=== PATIENT | female | born 1965 | race African-American/Black ===

== ENCOUNTER 2016-07-29 19:08 | Emergency (ER) | payer OTHER ==
--- NOTE | 2016-07-29 19:11 | PDOC ---
Rapid Medical Evaluation Time Seen by Provider: 07/29/16 19:11 Medical Evaluation: Allergies Allergy/AdvReac Type Severity Reaction Status Date / Time No Known Drug Allergies Allergy Verified 07/22/15 19:18 wheat Allergy Hives Verified 07/22/15 19:18 NUTS Allergy Hives Uncoded 07/22/15 19:18 07/29/16 19:11 50 year old female with history of asthma, latent TB s/p tx in 1995, and wheat/ nut allergies presents with painful swallowing and sensation of swelling to the right side of the throat and face after eating popcorn. No shortness of breath. V/s unremarkable. No wheezing or oropharyngeal edema noted. No drooling or stridor. -To FT for further evaluation.
[2016-07-29 19:17] VITALS: BP 159/87; PULSE 79; TEMP 97.9; BMI 39.1
[2016-07-29] MEDS ORDERED: DEXAMETHASONE SOD PHOSPHATE 10 MG/1 ML VIAL IM ONE (19:23)
--- NOTE | 2016-07-29 19:39 | PDOC ---
History of Present Illness - General Chief Complaint: Edema Stated Complaint: SWOLLEN NECK Time Seen by Provider: 07/29/16 19:11 History Source: Patient Exam Limitations: No Limitations - History of Present Illness Initial Comments: 07/29/16 19:34 Patient with acute onset of right neck swelling while eating today, states right side of her neck enlarged and was painful. Denies difficulty swallowing, or any airway difficulty. Denies sensation of ALLERGY as patient has multiple and severe food ALLERGIES. . Denies fever, ear or throat pain, denies any trauma or any difficulty chewing. States went to the bathroom and stood mouth with warm water and Listerine and since that time and massaging neck had some resolution. 07/29/16 19:37 Timing/Duration: unsure, 1-3 hours Severity: mild Past History - Travel Traveled outside of the country in the last 30 days: No Close contact w/someone who was outside of country & ill: No - Past Medical History Allergies/Adverse Reactions: Allergies Allergy/AdvReac Type Severity Reaction Status Date / Time No Known Drug Allergies Allergy Verified 07/29/16 19:12 wheat Allergy Hives Verified 07/29/16 19:12 NUTS Allergy Hives Uncoded 07/29/16 19:12 Home Medications: Ambulatory Orders Cetirizine HCl [Zyrtec -] 10 mg PO DAILY 08/01/14 Albuterol Sulfate Inhaler - [Ventolin HFA Inhaler -] 1 inh IH Q4H PRN #1 inhaler 07/27/15 Prednisone 10 mg PO DAILY #30 tablet 07/27/15 Salmeterol/Fluticasone [Advair 100Mcg/50Mcg -] 1 puff IH BID #1 inhaler Anemia: No Asthma: Yes Cancer: No Cardiac Disorders: No CVA: No COPD: No CHF: No Dementia: No Diabetes: No GI Disorders: No Disorders: No HTN: No Hypercholesterolemia: No Liver Disease: No Seizures: No Thyroid Disease: No - Surgical History Abdominal Surgery: No Appendectomy: No Cardiac Surgery: No Cholecystectomy: No Lung Surgery: No Neurologic Surgery: No Orthopedic Surgery: No - Reproductive History (#): 2 Para: 2 Spontaneous : 0 - Psycho/Social/Smoking Cessation Hx Anxiety: No Suicidal Ideation: No Smoking Status: No Smoking History: Never smoked Have you smoked in the past 12 months: No Number of Cigarettes Smoked Daily: 0 Information on smoking cessation initiated: No Hx Alcohol Use: No Drug/Substance Use Hx: No Substance Use Type: None Hx Substance Use Treatment: No Review of Systems - Review of Systems Able to Perform ROS?: Yes Is the patient limited Lithuanian proficient: Yes Constitutional: Yes: See HPI, Fever. No: Symptoms Reported, Malaise HEENTM: Yes: Symptoms Reported, See HPI, Nose Congestion. No: Throat Swelling ( neck swelling, not swelling to throat) Respiratory: Yes: See HPI. No: Symptoms reported, Cough *Physical Exam - Vital Signs Last Vital Signs Temp Pulse Resp BP Pulse Ox 97.9 F 79 18 159/87 100 07/29/16 19:13 07/29/16 19:13 07/29/16 19:13 07/29/16 19:13 07/29/16 19:13 - Physical Exam General Appearance: Yes: Nourished, Appropriately Dressed, Apparent Distress HEENT: positive: DAPHNEY, Normal ENT Inspection, TMs Normal, Pharynx Normal (no obstruction, redness, swelling or exudate. Has tenderness reproduced in the floor of mouth sublingually and tender mass to the right side in the parotid area. No obvious stone or obstruction noted), Nasal Congestion Neck: positive: Supple, Lymphadenopathy (R), Lymphadenopathy (L). negative: Tender Respiratory/Chest: positive: Lungs Clear, Normal Breath Sounds, Wheezing. negative: Respiratory Distress Gastrointestinal/Abdominal: positive: Soft. negative: Tender Musculoskeletal: positive: Normal Inspection Extremity: positive: Normal Capillary Refill, Normal Inspection Integumentary: positive: Normal Color, Dry, Warm Neurologic: positive: osteopathic resident II-XII NML intact, Fully Oriented, Alert, Normal Mood/ Affect, Normal Response, Motor Strength 5/5 Medical Decision Making - Medical Decision Making 07/29/16 19:38 Salivary stone, resolving 07/29/16 19:40 *DC/Admit/Observation/Transfer Diagnosis at time of Disposition: Salivary duct stone - Discharge Dispostion Disposition: HOME Condition at time of disposition: Stable Admit: No - Patient Instructions Printed Discharge Instructions: Parotitis Additional Instructions: Suck on lemon wedge Or very sour candy to expel obstruction to salivary Rinse mouth with warm water Return to emergency department for recurrence of symptoms, fevers, or other changes.
== END 2016-07-29 19:43 | disposition home or self-care (01) ==
LOC: JERFT 19:08
PROC: 3E0233Z Introduction of Anti-inflammatory into Muscle, Percutaneous Approach (ICD-10-PCS; principal; 2016-07-29)
DX: K11.5 Sialolithiasis (principal)
CPT/HCPCS: 96372; 99281-25